=== PATIENT | male | born 1990 | race Caucasian/White ===

== ENCOUNTER 2018-04-26 11:01 | Day surgery (SDC) | payer OTHER ==
[~2018-04-26] VITALS: Ht 179.1 cm; Wt 70.3 kg
[~2018-04-26 11:01] MED LIST: NKM; ceFAZolin 1gm in D5W 55ml IVPB ONE; celeBREX 200mg Cap **SURGERY PATIENTS ONLY ORAL ONE; oxyCONTIN 20mg tab ORAL ONE
[2018-04-26 12:57] VITALS: BP 129/66
[2018-04-26] MEDS ORDERED: celeBREX 200mg Cap **SURGERY PATIENTS ONLY ORAL ONE (13:16)
[2018-04-26] MEDS ORDERED: oxyCONTIN 20mg tab ORAL ONE (13:16)
[2018-04-26] MEDS ORDERED: EPINEPHrine 1mg/1ml Amp ONE (13:43)
[2018-04-26] MEDS ORDERED: Bupivacaine 0.25% Inj 30ml INJ ONE ×2 (13:44→13:49)
[2018-04-26] MEDS ORDERED: Ketorolac 30mg Inj ONE (13:49)
[2018-04-26] MEDS ORDERED: Morphine Sulfate PF 0 ML ONE (13:49)
[2018-04-26] MEDS ORDERED: Kenalog-40 1ml Vial ONE (13:49)
[2018-04-26] MEDS ORDERED: LR 1000ml ONE (14:30)
[2018-04-26] MEDS ORDERED: Sterile Water Irrig 1000ml IRRIG ONE (14:30)
[2018-04-26] MEDS ORDERED: NS Irrig 1000ml ONE (14:30)
[2018-04-26] MEDS ORDERED: Propofol 200mg/20ml IV ONE (14:30)
[2018-04-26] MEDS ORDERED: NS Irrig 4000ml IRRIG ONE (14:30)
[2018-04-26] MEDS ORDERED: LR 1000ml 1,000 ML IVLG SCH (14:38)
[2018-04-26] MEDS ORDERED: Labetalol 5mg/ml 20ml vial IV PRN (14:45)
[2018-04-26] MEDS ORDERED: HYDROcodone/Acetamin 7.5/325 tab ORAL PRN (14:45)
[2018-04-26] MEDS ORDERED: Metoclopramide 10mg/2ml Inj IVP PRN (14:45)
[2018-04-26] MEDS ORDERED: Hydromorphone 0.5mg/0.5ml inj IVP PRN (14:45)
[2018-04-26] MEDS ORDERED: Atropine Inj 1mg/10ml Syr IV PRN (14:45)
[2018-04-26] MEDS ORDERED: LORazepam Inj 2mg/ml 1ml IV PRN (14:45)
[2018-04-26] MEDS ORDERED: Ketorolac 30mg Inj IV PRN ×2 (14:45)
[2018-04-26] MEDS ORDERED: Norco 5mg/325mg tab ORAL PRN (14:45)
[2018-04-26] MEDS ORDERED: Midazolam 2mg/2ml Inj IVP PRN (14:45)
[2018-04-26] MEDS ORDERED: DiphenhydrAMINE 50mg/ml Inj IVP PRN (14:45)
[2018-04-26] MEDS ORDERED: oxyCODONE HCL/Acetaminophen 5/325mg ORAL PRN (14:45)
[2018-04-26] MEDS ORDERED: fentaNYL 100 mcg/2 mL IV PRN (14:45)
--- NOTE | 2018-04-26 15:18 | Anethesia Preoperative Eval ---
Anesthesia Pre-op PMH/ROS General Date of Evaluation: Apr 26, 2018 Time of Evaluation: 14:24 Anesthesiologist: Lupe ASA Score: ASA 1 Mallampati Score Class I : Soft palate, uvula, fauces, pillars visible Class II: Soft palate, uvula, fauces visible Class III: Soft palate, base of uvula visible Class IV: Only hard plate visible Mallampati Classification: Class I Surgeon: Cesar Diagnosis: R Shoulder Pain Surgical Procedure: R Shouilder Arthroscopy Anesthesia History: none Family History: no anesthesia problems Allergies: Coded Allergies: No Known Allergies (Unverified , 04/25/18) Medications: see eMAR Anesthesia Pre-op Phys. Exam Physician Exam Last Vital Signs Date Time Temp Pulse Resp B/P (MAP) Pulse Ox O2 Delivery O2 Flow Rate FiO2 04/26/18 12:57 97.0 52 20 129/66 96 Room Air 97.0 Constitutional: NAD Neurologic: CN 2-12 intact Cardiovascular: RRR Respiratory: CTA Gastrointestinal: S/NT/ND Airway Exam Mallampati Score: Class I MO: full ROM: full Teeth: intact Anesthesia Pre-op A/P Risk Assessment & Plan Assessment: ASA 1 Plan: GA, BIS, R Supraclavicular Block Status Change Before Surgery: No Pre-Antibiotics Dru Grams Ancef IV Given Within 1 Hr of Incision: Yes Time Given: 14:53 Jerad Andrade MD Apr 26, 2018 15:18
--- NOTE | 2018-04-26 15:19 | Immediate Post-Op Evaluation ---
Immediate Post-Op Evalulation Immediate Post-Op Evalulation Procedure: R Shoulder Arthroscopy Date of Evaluation: Apr 26, 2018 Time of Evaluation: 16:55 IV Fluids: 500 LR Blood Products: 0 Estimated Blood Loss: 4 Urinary Output: 0 Blood Pressure Systolic: 127 Blood Pressure Diastolic: 86 Pulse Rate: 94 Respiratory Rate: 16 O2 Sat by Pulse Oximetry: 100 Temperature (Fahrenheit): 97.8 Pain Score (1-10): 1 Nausea: No Vomiting: No Complications 0 Patient Status: awake, reacts, patent, extubated, none Hydration Status: adequate Dru Grams Ancef IV Given Within 1 Hr of Incision: Yes Time Given: 14:53 Jerad Andrade MD Apr 26, 2018 15:19
--- NOTE | 2018-04-26 15:20 | 48 Hour Post Anesthesia Eval ---
Post Anesthesia Evaluation Procedure: R Shoulder Arthroscopy Date of Evaluation: Apr 26, 2018 Time of Evaluation: 19:12 Blood Pressure Systolic: 128 0: 84 Pulse Rate: 62 Respiratory Rate: 18 Temperature (Fahrenheit): 98.2 O2 Sat by Pulse Oximetry: 100 Airway: patent Nausea: No Vomiting: No Pain Intensity: 1 Hydration Status: adequate Cardiopulmonary Status: Stable Mental Status/LOC: patient returned to baseline Follow-up Care/Observations: 0 Post-Anesthesia Complications: 0 Follow-up care needed: ready to discharge Jerad Andrade MD Apr 26, 2018 15:20
[2018-04-26] MEDS ORDERED: Alfentanil 2ml Inj ONE (15:24)
[2018-04-26] MEDS ORDERED: Dexamethasone 4mg/ml vial ONE (15:27)
[2018-04-26] MEDS ORDERED: Ropivacaine 5mg/ml Vial 30ml INJ ONE (15:27)
[2018-04-26] MEDS ORDERED: Sodium Chloride 10ml vial INJ ONE ×2 (15:27→15:39)
[2018-04-26] MEDS ORDERED: Lidocaine 1% MPF 10mg/ml 5ml ONE (15:27)
[2018-04-26] MEDS ORDERED: Phenylephrine 10mg/ml Vial ONE (15:38)
[2018-04-26] MEDS ORDERED: Glycopyrrolate 0.2mg/ml 1ml Vial ONE (15:42)
[2018-04-26 16:44] VITALS: BP 125/80
[2018-04-26 16:49] VITALS: BP 127/86
[2018-04-26 16:53] VITALS: BP 146/62
[2018-04-26 17:15] VITALS: BP 136/82
[2018-04-26 17:30] VITALS: BP 131/84
--- NOTE | 2018-04-26 19:45 | Operative Note - Dictated ---
DATE OF OPERATION: 04/26/2018 PREOPERATIVE DIAGNOSES: 1. Right shoulder instability secondary to posterior labral tear. 2. Right shoulder SLAP tear. 3. Partial articular-sided rotator cuff tear. POSTOPERATIVE DIAGNOSES: 1. Right shoulder instability secondary to posterior labral tear. 2. Right shoulder SLAP tear. 3. Partial articular-sided rotator cuff tear. PROCEDURES: 1. Right shoulder diagnostic arthroscopy, extensive intra-articular debridement. 2. Right shoulder SLAP repair. 3. Right shoulder posterior labral repair. 4. Right shoulder bursoscopy. 5. Right shoulder arthroscopic rotator cuff repair/debridement SURGEON: Sanjeev Guerrero M.D. ANESTHESIA: Interscalene with general. INDICATION FOR PROCEDURE: The patient is a pleasant gentleman, who has had right shoulder pain. He had MRI, which showed a superior labral tear along with the extension to the posterior labrum. The patient failed conservative treatment and still has pain and discomfort. Therefore, he elected to undergo right shoulder arthroscopy, labral stabilization including SLAP repair. Risks, limitations, expectations, and complications of procedure were discussed in detail. All questions were addressed. DESCRIPTION OF PROCEDURE: After informed consent was obtained, the patient was brought to the operative room and placed the patient under interscalene with general anesthesia. The patient was then carefully placed in beach-chair position. Right shoulder was prepped and draped in sterile manner. Time-out was performed. Portal sites were injected with 0.25% Marcaine with epinephrine. Inferolateral stab incision was then made. Trocar was introduced into the glenohumeral joint. There was subluxation of the superior labrum within the joint. The biceps tendon appeared to be intact. The undersurface of the rotator cuff had a partial rotator cuff tear. Once the rotator cuff was addressed, attention was towards the labrum. He had a pretty significant tear along the superior labrum extending posteriorly. The soft tissue along the glenoid margin was debrided of soft bone and tissue to bleeding surface. Wolbach was then placed on the anterosuperior portion to stabilize the superior labrum. Once that was done, the camera was repositioned in the anterior portal. Two additional anchors were placed on the posterior aspect of the glenoid as well as posterosuperior aspect of the glenoid. Once this was done, the labrum seemed to be recreated and sutured onto the face of the glenoid. Camera was repositioned through the posterior portal. At this point, the labrum appeared to be securely fixed to the glenoid. At this point, the camera was placed in the subacromial space. There was slight fraying bursal tissue which was debrided. The CA ligament and the bursal side of the rotator cuff was intact. The camera was removed. Portal sites were closed with 3-0 Monocryl sutures. Steri-Strips and a sterile dressing were applied. The patient was awoken and taken to recovery room with stable vital signs. ESTIMATED BLOOD LOSS: None. COMPLICATIONS: None. SPECIMENS: None. IMPLANTS: Include 3 [employer]omet ToggleLoc anchors. Sanjeev Guerrero M.D. DR: Rory JOB#: [id number] CC:
--- NOTE | 2018-04-30 18:24 | Operative Note - PDOC ---
Operative Note Operative Note Pre-op Diagnosis: right shoulder slap repair Procedure: see op report Post-op Diagnosis: same as pre-op plus Operative Findings: consistent w/pre-op dx studies Anesthesia: regional Specimen: none Complications: none Condition: stable Estimated Blood Loss: none Implant(s) used?: Yes Sanjeev Guerrero MD Apr 30, 2018 18:24
--- NOTE | 2018-04-30 18:24 | Pre-Procedure Note/Attestation ---
Pre-Procedure Note/Attestation Complete Prior to Procedure Planned Procedure: right Procedure Narrative: shoulder arthroscopy, slap repair Indications for Procedure Pre-Operative Diagnosis: right shoulder slap repair Attestation I attest that I discussed the nature of the procedure; its benefits; risks and complications; and alternatives (and the risks and benefits of such alternatives ), prior to the procedure, with the patient (or the patient's legal life assurance representative). I attest that, if there was a reasonable possibility of needing a blood transfusion, the patient (or the patient's legal life assurance representative) was given the [facility] standardized written summary, pursuant to the [place] Blood Safety Act ([place] Health and Safety Code # 1645, as amended). I attest that I re-evaluated the patient just prior to the surgery and that there has been no change in the patient's H&P, except as documented below: Sanjeev Guererro MD Apr 30, 2018 18:24
== END 2018-04-26 17:40 | disposition home or self-care (01) ==
LOC: SUR 11:01
DX: S43.431A Superior glenoid labrum lesion of right shoulder, initial encounter (principal); M75.111 Incomplete rotator cuff tear or rupture of right shoulder, not specified as traumatic; X58.XXXA Exposure to other specified factors, initial encounter; Y92.9 Unspecified place or not applicable
CPT/HCPCS: 29807; 29823; J0171; J0690; J1100; J2370; J2405; J2704; J2795; J3490; J7120; 94003; 94150